=== PATIENT | male | born 1960 | race Two or more races ===

== ENCOUNTER 2018-12-16 12:13 | Inpatient (IN) | payer SELFPAY ==
[~2018-12-16] VITALS: Ht 185.4 cm; Wt 113.3 kg
[~2018-12-16 12:13] MED LIST: AZIT250T PO; GUAISYP5 OR; HYDRCRY2 XX
[2018-12-16] MEDS ORDERED: HYDROcodone-ACET 10/325MG TAB PO ONE (16:00)
[2018-12-16 16:30] LABS: Alcohol, Urine < 3.0 mg/dL (0-5); Amphetamine Screen, Urine NEGATIVE (NEGATIVE); Barbiturate Scree,Urine NEGATIVE (NEGATIVE); Benzodiazephine Screen, Urine NEGATIVE (NEGATIVE); Cannabinoid Screen, Urine NEGATIVE (NEGATIVE); Cocaine Screen, Urine NEGATIVE (NEGATIVE); Opiate Scree,Urine NEGATIVE (NEGATIVE); Phencyclidine Screen, Urine NEGATIVE (NEGATIVE)
[2018-12-16 16:31] LABS: Urine Bacteria NONE SEEN /hpf (None Seen); Urine Blood Negative /uL (Negative); Urine Hyaline Cast FEW /lpf (0 - 2); Urine Mucus FEW (None Seen); Urine Specific Gravity 1.028 (1.001-1.035); Urine WBC <1 /hpf (0 - 3)
[2018-12-16 17:17] LABS: Basophils # (auto) 0 uL; Basophils % (auto) 0.2 % (0.0-2.0); Eosinophils # (auto) 0 uL; Eosinophils % (auto) 0.1 % (0.0-7.0); Hematocrit 48.6 % (41.0-53.0); Hemoglobin 16.4 g/dL (13.5-17.5); Lymphocytes % (auto) 13.3 % (10.0-50.0); Mean Corpuscular Hemoglobin 34.5 pg (28.0-32.0); Mean Corpuscular Hgb Conc. 33.7 g/dL (32.0-36.0); Mean Corpuscular Volume 102.4 fL (80.0-100.0); Monocytes # (auto) 0.8 uL; Monocytes % (auto) 10.5 % (0.0-12.0); Neutrophils # (auto) 5.8 uL; Neutrophils % (auto) 75.9 % (37.0-80.0); Nucleated Red Blood Cells % 0.1 %; Platelet Count (auto) 140 10^3/uL (140-450); Red Blood Cells 4.75 10^6/uL (4.5-5.90); Red Cell Distribution Width 14.4 % (11.8-14.3); White Blood Cell 7.6 10^3/uL (4.4-10.8)
[2018-12-16 17:36] LABS: Albumin 4.2 g/dL (3.4-5.0); Calcium 8.6 mg/dL (8.5-10.1); Partial Thromboplastin Time 27.8 sec (23.78-33.04); Potassium 4.4 mmol/L (3.5-5.1); Prothrombin Time 10.7 sec (9.27-12.13)
[2018-12-16 17:38] LABS: BUN/Creatinine Ratio 19.5
[2018-12-16 17:41] LABS: Bilirubin, Total 1.5 mg/dL (0.2-1.0); Total Protein 8.7 g/dL (6.4-8.2)
[2018-12-16] MEDS ORDERED: cloNIDine HCL 0.1 MG TAB PO PRN (20:45)
[2018-12-16] MEDS: HYDROcodone-ACET 5/325MG TAB PO PRN (21:39)
[2018-12-16 22:30] VITALS: BP 159/108
--- NOTE | 2018-12-16 22:30 | NUR ---
MS admit from ER JACK DE LEON admitted to tele/MS after SBAR received. Patient oriented to Pat Min, primary RN, unit, room, bed, and unit policies regarding patient care and visiting hours. Patient weighed by bedscale and encouraged to call if they need something. All questions and concerns addressed, patient verbalized understanding. Note:
[2018-12-16] MEDS: SODIUM CHLORIDE 0.9% 1,000 ML IV SCH (22:53)
[2018-12-16 23:40] VITALS: BP 139/85
[2018-12-17] MEDS: ALBUTEROL SULF 2.5 MG/0.5ML(0.5%) NEB SOLN NEB SCH ×4 (00:10→18:59)
[2018-12-17] MEDS: IPRATROPIUM BROM 0.5 MG/2.5ML INH SOL NEB SCH ×4 (00:10→18:59)
[2018-12-17 02:02] VITALS: BP 159/108
[2018-12-17] MEDS: MORPHINE SULFATE 4 MG/ML SYR/VIAL IV PRN ×2 (04:38→17:38)
[2018-12-17 05:00] VITALS: BP 148/97
[2018-12-17 06:32] LABS: Basophils # (auto) 0 uL; Basophils % (auto) 0.5 % (0.0-2.0); Eosinophils # (auto) 0.1 uL; Lymphocytes # (auto) 1.4 uL; Nucleated Red Blood Cells % 0.1 %; Platelet Count (auto) 121 10^3/uL (140-450)
[2018-12-17 06:43] LABS: Eosinophils % (auto) 1.5 % (0.0-7.0); Hematocrit 41.9 % (41.0-53.0); Hemoglobin 14.4 g/dL (13.5-17.5); Lymphocytes % (auto) 25.5 % (10.0-50.0); Mean Corpuscular Hemoglobin 35.3 pg (28.0-32.0); Mean Corpuscular Hgb Conc. 34.4 g/dL (32.0-36.0); Mean Corpuscular Volume 102.5 fL (80.0-100.0); Monocytes # (auto) 0.9 uL; Monocytes % (auto) 15.3 % (0.0-12.0); Neutrophils # (auto) 3.2 uL; Neutrophils % (auto) 57.2 % (37.0-80.0); Red Blood Cells 4.08 10^6/uL (4.5-5.90); Red Cell Distribution Width 14.2 % (11.8-14.3); White Blood Cell 5.6 10^3/uL (4.4-10.8)
[2018-12-17 07:02] LABS: Potassium 3.8 mmol/L (3.5-5.1)
[2018-12-17 07:06] LABS: Albumin 3.6 g/dL (3.4-5.0)
[2018-12-17 07:08] LABS: Bilirubin, Total 1.5 mg/dL (0.2-1.0); Total Protein 7.2 g/dL (6.4-8.2)
--- NOTE | 2018-12-17 07:40 | NUR ---
OPENING PATIENT IN BED, AWAKE, BED IN LOWEST POSITION, CALL LIGHT WITHIN REACH. NO DISTRESS NOTED AT THIS TIME WILL F/U WITH MORNING ASSESSMENT. TOX SCREEN NEGATIVE
[2018-12-17 08:30] VITALS: BP 141/93
[2018-12-17] MEDS: SODIUM CHLORIDE 0.9% 1,000 ML IV SCH ×2 (10:51→23:25)
[2018-12-17] MEDS: HYDROcodone-ACET 5/325MG TAB PO PRN (10:52)
[2018-12-17] MEDS: ONDANSETRON HCL 4 MG/2 ML VIAL IV PRN ×2 (10:53→17:37)
--- NOTE | 2018-12-17 11:00 | NUR ---
MD GOLDIE AMEZCUA TALKS ABOUT ELEVATED LIVER LEVELS, AND FOR THE PATIENT TO USE AN INCENTIVE SPIROMETER, AND NEBULIZER TREATMENTS. POSSIBLE DISCHARGE IN 1-2 DAYS ADDS IN LISINOPRIL MULTI VITAMIN THIAMINE
[2018-12-17] MEDS ORDERED: THIAMINE 100mg/ml INJ (200mg/2ml VIAL) IV ONE (11:15)
[2018-12-17] MEDS ORDERED: MULTIPLE VITAMINS W/ MINERALS TAB PO ONE (11:15)
[2018-12-17] MEDS ORDERED: LISINOPRIL 10 MG TAB PO ONE (11:15)
[2018-12-17] MEDS ORDERED: THIAMINE HCL 100 MG TAB PO ONE (11:30)
[2018-12-17 12:00] VITALS: BP 128/86
[2018-12-17 17:00] VITALS: BP 150/99
--- NOTE | 2018-12-17 19:30 | NUR ---
assumed care, pt. awake, no c/o pain, no sob.
[2018-12-17 22:00] VITALS: BP 146/95
[2018-12-18] MEDS: MORPHINE SULFATE 4 MG/ML SYR/VIAL IV PRN ×2 (01:53→09:00)
[2018-12-18] MEDS: SODIUM CHLORIDE 0.9% 1,000 ML IV SCH (02:00)
[2018-12-18 05:00] VITALS: BP 156/102
[2018-12-18] MEDS: ALBUTEROL SULF 2.5 MG/0.5ML(0.5%) NEB SOLN NEB SCH ×3 (06:24→11:14)
[2018-12-18] MEDS: IPRATROPIUM BROM 0.5 MG/2.5ML INH SOL NEB SCH ×3 (06:24→11:14)
[2018-12-18 09:00] VITALS: BP 168/103
[2018-12-18] MEDS ORDERED: MULTIPLE VITAMINS W/ MINERALS TAB PO SCH (10:00)
[2018-12-18] MEDS ORDERED: THIAMINE 100mg/ml INJ (200mg/2ml VIAL) IV SCH (10:00)
[2018-12-18] MEDS ORDERED: LISINOPRIL 10 MG TAB PO SCH (10:00)
[2018-12-18] MEDS ORDERED: THIAMINE HCL 100 MG TAB PO SCH (10:00)
[2018-12-18 13:00] VITALS: BP 129/85
--- NOTE | 2018-12-18 16:00 | NUR ---
CLOSING Discharge instructions given as ordered. Encourage to follow up with PMD as instructed. All questions and concerns addressed. Patient verbalized understanding. Medication reconciliation form completed and copy given to patient. IV removed with catheter intact, pressure dressing applied, Patient taken to vehicle via wheelchair with all personal belongings, accompanied by staff and family member. No distress noted at time of departure.
== END 2018-12-18 16:00 | disposition home or self-care (01) | DRG 184 ==
LOC: ER 12:13 → OVERFLOW 20:47 → CENTRAL 22:12
PROVIDERS: ADMIT Internal Medicine; ATTEND Internal Medicine
DX: S22.42XA Multiple fractures of ribs, left side, initial encounter for closed fracture (principal); S52.502A Unspecified fracture of the lower end of left radius, initial encounter for closed fracture; F10.10 Alcohol abuse, uncomplicated; G93.89 Other specified disorders of brain; F17.210 Nicotine dependence, cigarettes, uncomplicated; F41.9 Anxiety disorder, unspecified; M54.9 Dorsalgia, unspecified; R91.1 Solitary pulmonary nodule; I10 Essential (primary) hypertension; K70.9 Alcoholic liver disease, unspecified; K76.0 Fatty (change of) liver, not elsewhere classified; M48.061 Spinal stenosis, lumbar region without neurogenic claudication; W14.XXXA Fall from tree, initial encounter; Y93.89 Activity, other specified; Y92.89 Other specified places as the place of occurrence of the external cause; Z79.899 Other long term (current) drug therapy; Z82.49 Family history of ischemic heart disease and other diseases of the circulatory system
CPT/HCPCS: 36415; 70450; 71045; 71250; 72125; 72192; 73060; 73110; 80053; 80307; 80320; 81001; 82607; 83735; 84443; 85025; 85610; 85730; 93005; 94640; 94761; 96374; 96375; G0378; J2405

== ENCOUNTER 2019-04-16 23:41 | Emergency (ER) | payer MEDICAID ==
[~2019-04-16] VITALS: Ht 185.4 cm; Wt 108.9 kg
[2019-04-16 23:45] VITALS: BP 118/94
[2019-04-17] MEDS ORDERED: IBUPROFEN 800 MG TAB PO ONE (04:30)
[2019-04-17] MEDS ORDERED: HYDROcodone-ACET 5/325MG TAB PO ONE (04:30)
== END 2019-04-17 04:45 | disposition home or self-care (01) ==
LOC: ER 23:42
DX: S52.502G Unspecified fracture of the lower end of left radius, subsequent encounter for closed fracture with delayed healing (principal); S62.002G Unspecified fracture of navicular [scaphoid] bone of left wrist, subsequent encounter for fracture with delayed healing; F17.210 Nicotine dependence, cigarettes, uncomplicated; W18.39XD Other fall on same level, subsequent encounter
CPT/HCPCS: 73110

== ENCOUNTER 2019-06-04 08:20 | Emergency (ER) | payer MEDICAID ==
[~2019-06-04] VITALS: Ht 182.9 cm; Wt 81.6 kg
[2019-06-04] MEDS ORDERED: THIAMINE 100mg/ml INJ (200mg/2ml VIAL) IV ONE (09:15)
[2019-06-04] MEDS ORDERED: PANTOPRAZOLE 40 MG/10 ML VIAL INJ IV ONE (09:15)
[2019-06-04 09:24] LABS: Basophils # (auto) 0 uL; Basophils % (auto) 0.3 % (0.0-2.0); Eosinophils # (auto) 0 uL; Nucleated Red Blood Cells % 0.2 %; Platelet Count (auto) 161 10^3/uL (140-450)
[2019-06-04 09:26] LABS: Hematocrit 43.3 % (41.0-53.0); Hemoglobin 14.6 g/dL (13.5-17.5); Lymphocytes % (auto) 9.4 % (10.0-50.0); Mean Corpuscular Hemoglobin 34.8 pg (28.0-32.0); Mean Corpuscular Hgb Conc. 33.7 g/dL (32.0-36.0); Mean Corpuscular Volume 103.1 fL (80.0-100.0); Monocytes # (auto) 0.9 uL; Monocytes % (auto) 7.9 % (0.0-12.0); Neutrophils # (auto) 9.2 uL; Neutrophils % (auto) 82.4 % (37.0-80.0); White Blood Cell 11.2 10^3/uL (4.4-10.8)
[2019-06-04 09:38] LABS: INR 1.02 (0.9-1.15); Partial Thromboplastin Time 23.9 sec (23.64-32.05)
[2019-06-04 09:45] LABS: Albumin 4.6 g/dL (3.4-5.0); Anion Gap 14 (5-15); Blood Urea Nitrogen 35 mg/dL (7-18); Calcium 9.4 mg/dL (8.5-10.1); Carbon Dioxide 22 mmol/L (21-32); Chloride 106 mmol/L (98-107); Glucose 132 mg/dL (74-106); Magnesium 1.7 mg/dL (1.6-2.6); Potassium 4.3 mmol/L (3.5-5.1); Sodium 142 mmol/L (136-145)
[2019-06-04] MEDS ORDERED: FAMOTIDINE (10MG/ML) 2ML VL IV ONE (09:45)
[2019-06-04 09:47] LABS: BUN/Creatinine Ratio 17.6; Blood Alcohol < 3.0 mg/dL (0-5); GFR African American 44 mL/min; GFR Non-African American 36 mL/min
[2019-06-04 09:56] LABS: Alanine Aminotransferase 165 U/L (16-61); Alkaline Phosphatase 84 U/L (45-117); Aspartate Aminotransferase 92 U/L (15-37); Bilirubin, Total 1.1 mg/dL (0.2-1.0); Total Protein 8.5 g/dL (6.4-8.2)
[2019-06-04 12:56] VITALS: BP 135/84
== END 2019-06-04 14:10 | disposition home or self-care (01) ==
LOC: EDBD 08:20 → ER 08:22
DX: S09.90XA Unspecified injury of head, initial encounter (principal); J20.9 Acute bronchitis, unspecified; I10 Essential (primary) hypertension; F17.210 Nicotine dependence, cigarettes, uncomplicated; R51 Headache; R55 Syncope and collapse; W19.XXXA Unspecified fall, initial encounter; Y93.89 Activity, other specified; Y92.091 Bathroom in other non-institutional residence as the place of occurrence of the external cause; Y99.8 Other external cause status
CPT/HCPCS: 36415; 70450; 71045; 74176; 80053; 80320; 83735; 84484; 85025; 85610; 85730; 93005; 96374; 96375; 99284; J3411; J3490

== ENCOUNTER 2022-01-07 16:51 | Emergency (ER) | payer MEDICAID ==
[~2022-01-07] VITALS: Ht 185.4 cm; Wt 83.9 kg
[2022-01-07 19:28] LABS: Basophils # (auto) 0 10 ^3/uL (0-0.2); Basophils % (auto) 0.5 % (0.0-2.0); Eosinophils # (auto) 0.2 10 ^3/uL (0-0.8); Eosinophils % (auto) 3.8 % (0.0-7.0); Hematocrit 41.6 % (41.0-53.0); Hemoglobin 14.3 g/dL (13.5-17.5); Lymphocytes % (auto) 30.7 % (10.0-50.0); Mean Corpuscular Hemoglobin 33.9 pg (28.0-32.0); Mean Corpuscular Hgb Conc. 34.3 g/dL (32.0-36.0); Mean Corpuscular Volume 98.7 fL (80.0-100.0); Monocytes # (auto) 0.8 10 ^3/uL (0-1.3); Monocytes % (auto) 11.8 % (0.0-12.0); Neutrophils # (auto) 3.4 10 ^3/uL (1.6-8.6); Neutrophils % (auto) 53.2 % (37.0-80.0); Nucleated Red Blood Cells % 0.2 %; Red Blood Cells 4.21 10^6/uL (4.5-5.90); Red Cell Distribution Width 13.9 % (11.8-14.3); White Blood Cell 6.4 10^3/uL (4.4-10.8)
[2022-01-07 19:43] LABS: Potassium 3.8 mmol/L (3.5-5.1)
[2022-01-07 19:49] LABS: BUN/Creatinine Ratio 15.4
[2022-01-07 20:01] LABS: Total Protein 7.9 g/dL (6.4-8.2)
[2022-01-08] MEDS ORDERED: HYDR-4902 PO ×2 (01:20→16:38)
[2022-01-08 01:23] VITALS: BP 159/89
== END 2022-01-08 01:36 | disposition home or self-care (01) ==
LOC: ER 16:51
DX: K57.30 Diverticulosis of large intestine without perforation or abscess without bleeding (principal); K62.5 Hemorrhage of anus and rectum; I10 Essential (primary) hypertension; F17.210 Nicotine dependence, cigarettes, uncomplicated; J44.9 Chronic obstructive pulmonary disease, unspecified
CPT/HCPCS: 36415; 71045; 74177; 80053; 84484; 85025